=== PATIENT | male | born 1965 | race Hispanic/Latino ===

== ENCOUNTER 2022-05-23 03:32 | Emergency (ER) | payer OTHER ==
[~2022-05-23] VITALS: Ht 172.7 cm; Wt 78.9 kg
[~2022-05-23 03:32] MED LIST: NO MEDS
[2022-05-23] MEDS ORDERED: AUGMENTIN 500-1 EACH PO (04:12)
== END 2022-05-23 04:19 | disposition home or self-care (01) ==
LOC: FSED 04:10
DX: H66.91 Otitis media, unspecified, right ear (principal); F17.210 Nicotine dependence, cigarettes, uncomplicated
CPT/HCPCS: 99282

== ENCOUNTER 2023-01-23 19:06 | Emergency (ER) | payer OTHER ==
[~2023-01-23] VITALS: Ht 172.7 cm; Wt 78.0 kg
[~2023-01-23 19:06] MED LIST changes: +AUGMENTIN 500-1 EACH PO
[2023-01-23] MEDS ORDERED: PROVENTIL HFA6.7 GM INH (21:43)
[2023-01-23] MEDS ORDERED: ALBUTEROL/IPRATROPIUM 3 ML NEB NEB ONE (21:45)
[2023-01-23] MEDS ORDERED: DEXAMETHASONE SOD PHOS 10 MG/1 ML VIAL IM ONE (21:45)
[2023-01-23] MEDS ORDERED: GUAIFEN-CODEINE5 ML PO (21:46)
[2023-01-23] MEDS ORDERED: DEXAMETHASONE SOD PHOS INJ 4 MG/ML SDV ONE (22:10)
[2023-01-23] MEDS ORDERED: ALBUTEROL/IPRATROPIUM 3 ML NEB ONE (22:11)
== END 2023-01-23 22:48 | disposition home or self-care (01) ==
LOC: FSED 19:58
DX: J98.01 Acute bronchospasm (principal); J06.9 Acute upper respiratory infection, unspecified
CPT/HCPCS: 83518; 87400; 99283; J1100